=== PATIENT | male | born 1995 | race African-American/Black ===

== ENCOUNTER 2017-03-12 19:52 | Emergency (ER) | payer OTHER ==
--- NOTE | ~2017-03-12 | CR126 ---
[facility] A Service of [facility] & [facility] / [facility] RADIOLOGY TEXT RESULTS PATIENT: EDILMA GOLD LOCATION: CFTX : [birth year] UNIT #: [id number] AGE: [address]: Felice Quevedo SEX: M ORDER DR: [id number] [facility] [address] [place], [place] [address] [id number] MR#: [id number] Acc #: [id number] NAME: EDILMA GOLD : 1995 SEX: M STUDY DATE/TIME: 03/12/2017 20:20 UNIT: [facility] ROOM: STUDY DESCRIPTION: CR Foot Complete Min 3 View Lt Attending Physician: Felice Quevedo P.A.-C. Ordering Physician: Felice Quevedo P.A.-C. Primary Care Physician: No Primary Care Physician MEDICAL IMAGING REPORT This report is preliminary unless electronic signature is present EXAM Left foot series INDICATIONS Left foot pain and numbness today after injury PROCEDURE 3 views of the left foot COMPARISON None FINDINGS No acute fracture or dislocation. IMPRESSION No acute findings Dictated by... Niko Cunningham M.D. THIS IS AN ELECTRONICALLY VERIFIED REPORT Niko Cunningham M.D. at 03/13/2017 9:31 AM EVELYN/serge TD: 03/12/2017 22:51 JOB #: [id number] MEDICAL IMAGING REPORT Page 1 of 1 COPY
== END 2017-03-12 21:58 | disposition home or self-care (01) ==
LOC: CFTX 19:52 → CED 19:52 → CFTX 20:30
DX: S91.215A Laceration without foreign body of left lesser toe(s) with damage to nail, initial encounter (principal); S91.115A Laceration without foreign body of left lesser toe(s) without damage to nail, initial encounter; F17.200 Nicotine dependence, unspecified, uncomplicated; X58.XXXA Exposure to other specified factors, initial encounter; Y93.89 Activity, other specified; Y92.69 Other specified industrial and construction area as the place of occurrence of the external cause; Y99.0 Civilian activity done for income or pay
CPT/HCPCS: 12002; 73630; 90471; 90715; 99283